=== PATIENT | male | born 1980 | race Caucasian/White ===

== ENCOUNTER 2024-02-25 13:54 | Inpatient (IN) | payer BC, SELFPAY ==
[2024-02-25] VITALS (8 sets, daily range): BP systolic 119–179; BP diastolic 79–100; BMI 30.1
--- NOTE | 2024-02-25 12:02 | ED.GENMED ---
History of Present Illness
General
Chief Complaint: Skin Problem
Time Seen by Provider: 02/25/24 11:48
History of Present Illness
History of Present Illness:
Patient is a 44-year-old man presenting to the emergency department middle finger infection. Patient states that about 3 weeks ago he cut his finger went to an urgent care and started on doxycycline. He states that it did not help with the redness
swelling or other drainage so he was switched over to Augmentin. He completed that course and went to orthopedics 2 days ago. During the visit the scab was removed. Patient states that since then he has had significant swelling redness and
purulent drainage. Last night he states that he used a needle to poke a hole in it and there was some blood and purulent drainage. No fevers or chills. No numbness tingling. No weakness. He does have full range of motion of his finger.
Past History
Past History
ED Past Medical History: None
Social History
Alcohol: Binge drinker
Personal: Single
Phy Exam
Physical Exam
Physical Exam:
GENERAL: in no acute distress
HEENT: normocephalic, extraocular movements intact
NECK: normal inspection
RESPIRATORY: no respiratory distress
CARDIOVASCULAR: regular rate and rhythm
EXTREMITIES: Left hand: Left distal middle finger with swelling to the palmar aspect and mild warmth and erythema. There is no obvious collection or induration, no fingernail involvement
NEUROLOGIC: awake and alert, moves all extremities
SKIN: warm
Course
Orders/Labs/Results
Orders:
Orders
02/25/24 12:00
CR Finger(s)/thumb Min 2 Vw Lt Urgent
Comment:
Reason For Exam: middle finger infection
02/25/24 12:18
Vancomycin [Vancocin] 2,000 mg 0.9% Sodium Chloride 500 ml [Nss] 500 ml IV NOW
02/25/24 12:20
Basic Metabolic Panel Urgent
Complete Blood Count/With Diff Urgent
Abnormal Lab Results
02/25/24
12:20
RBC 4.48 L 10^6/uL
(4.70-6.10)
Hct 38.6 L %
(39.0-52.0)
Absolute Neuts (auto) 7.4 H 10^3/uL
(1.4-6.5)
Absolute Monos (auto) 0.7 H 10^3/uL
(0.1-0.6)
Glucose 119 H mg/dl
(70-99)
02/25/24 12:20
02/25/24 12:20
Vital Signs
Initial and Last Documented VS:
Initial Vital Signs
Temp Pulse Resp BP Pulse Ox
98.5 F 91 18 179/100 98
02/25/24 10:28 02/25/24 10:28 02/25/24 10:02/25/24 10:28 02/25/24 10:28
Last Documented Vital Signs
Temp Pulse Resp BP Pulse Ox
98.5 F 80 16 179/100 99
02/25/24 10:28 02/25/24 12:25 02/25/24 12:25 02/25/24 10:02/25/24 12:25
MDM/Problems Addressed
Differential Diagnosis Includes:
44-year-old man presenting to the emergency department with concern for left middle finger infection that has been ongoing for 3 weeks. Vitals are unremarkable exam does show the distal phalanx of the left middle finger with erythema edema and
slight warmth. No obvious fluctuance. Concern for cellulitis versus osteomyelitis. History and exam not consistent with flexor tenosynovitis. No abscess seen on exam to drain. Given that patient has failed to oral antibiotic therapies will
initiate IV vancomycin. Will obtain basic blood work and x-ray of the finger to rule out any retained foreign bodies or signs of osteomyelitis.
*Critical Care Note
Total Time (30-74mins, 75-104mins- exclusive of procedures): Not Applicable
Update Note
Update Note:
X-ray per my interpretation with no foreign body or signs of cortical involvement to suggest osteomyelitis. Blood work generally unremarkable. Discussed with hospitalist who excepted patient for admission.
ED Attending Note
-
Portions of this chart may have been created with voice recognition software.� Occasional wrong word or��sound alike� substitutions may have occurred due to the inherent limitations of voice recognition software.
Discharge Plan
Departure
Patient Disposition: Admit
Date of Disposition: 02/25/24
Time of Disposition: 13:23
Presentation/result/management discussed w/ accepting MD/DO: Hospitalist
Discharge Problem:
Cellulitis
Prescriptions:
No Action
diphenhydramine HCl [Benadryl] 50 mg Capsule
50 mg PO HSPRN PRN (Reason: sleep)
ibuprofen [Advil] 200 mg Tablet
200 mg PO Q6HPRN PRN (Reason: headache)
escitalopram oxalate 10 mg Tablet
10 mg PO DAILY
melatonin 5 mg Tablet,Chewable
15 mg PO HSPRN PRN (Reason: sleep)
Referrals:
NONE,* [Family Provider] -
Interventions
Interventions:
*Risk Screen - Suicide Last Done: 02/25/24 12:25
*General Assessment Last Done: 02/25/24 12:25
*Neglect/Abuse Screening Last Done: 02/25/24 12:25
ED- Fall Risk Assessment Last Done: 02/25/24 12:25
*ED COVID-19 Vaccine History Last Done: 02/25/24 12:25
ED-Skin Assessment Last Done: 02/25/24 12:25
Discharge Date and Time
Print Language: BOTSWANAN
--- NOTE | 2024-02-25 12:08 | EDRN ---
Dr. Gomez was in to see pt.
[2024-02-25 12:30] LABS: % Basophils 0.5 % (0-2); % Eosinophils 0.2 % (0-6); % Immature Granulocytes 0.4 % (0-0.5); % Lymphocytes 21.7 % (20.5-51.1); % Monocytes 6.3 % (1.7-9.3); % Neutrophils 70.9 % (42.2-75.2); Absolute Basophils 0.1 10^3/uL (0-0.2); Absolute Lymphocytes 2.3 10^3/uL (1.2-3.4); Absolute Monocytes 0.7 10^3/uL (0.1-0.6); Absolute Neutrophils 7.4 10^3/uL (1.4-6.5); Hematocrit 38.6 % (39.0-52.0); Mean Corp Hgb Conc. 33.7 g/dL (33.0-37.0); Mean Corpuscular Volume 86.2 fL (80.0-94.0); Mean Platelet Volume 9.5 fL (7.4-10.4); Nucleated Red Blood Cells % 0 % (-); Platelet Count 296 10^3/uL (130-400); Red Blood Cell Count 4.48 10^6/uL (4.70-6.10); Red Cell Dist. Width 13.5 % (11.5-14.5); White Blood Cell Count 10.4 10^3/uL (4.8-10.8)
[2024-02-25 13:01] LABS: Blood Urea Nitrogen 13 mg/dl (9-20); Calcium 9.1 mg/dl (8.4-10.2); Carbon Dioxide 28 mmol/L (22-30); Chloride 101 mmol/L (98-107); Estimated Creatinine Clearance 90 ml/min; Glucose 119 mg/dl (70-99); Potassium 4.3 mmol/L (3.5-5.1); Sodium 138 mmol/L (135-145); eGFR > 60.00
--- NOTE | 2024-02-25 13:30 | HPS.HSE ---
Family Physician
-
Family Physician: * NONE
Chief Complaint
-
left middle finger wound
History of Present Illness
44-year-old man with PMH for depression presenting to the emergency department left middle finger infection. Patient states that about 3 weeks ago he nicked his finger on something while cleaning his yard. He went to an urgent care and started on
doxycycline which he took for 5 days. He states that it did not help with the redness swelling or other drainage so he was switched over to Augmentin which he took for 7 days, He completed that course and went to orthopedics 2 days ago. During
the visit the scab was removed. Patient states that since then he has had significant swelling redness and purulent drainage. Last night he states that he used a needle to poke a hole in it and there was some blood and purulent drainage. today
morning, he woke up with purulent drainage. No fevers or chills. No numbness tingling. No weakness. Patient denies headache, dizzy, syncope. Patient denied chest pain or short of breath. Patient denied abdominal pain, nausea, vomiting or
diarrhea. Patient denied dysuria hematuria.
Patient received vancomycin in ER. Admitted for further management
Medical History
Past Medical History
Past Medical History: Reports None
Additional Past Medical History:
Depression
Past Surgical History: Reports None
Social History
Tobacco: Smoker
Alcohol: None
Drug: None
Personal: Single
Living: Alone
Family History
Family History: Not pertinent
Allergies / Home Medications
Allergies reflects when Allergies were last updated in [facility].
Home Medications with original date entered in [facility]
Allergy/Medication List:
Allergies
Allergy/AdvReac Type Severity Reaction Status Date / Time
sulfamethoxazole Allergy Rash Verified 02/25/24 10:28
[From Bactrim]
trimethoprim [From Bactrim] Allergy Rash Verified 02/25/24 10:28
Home Medications
diphenhydramine HCl 50 mg capsule 50 mg PO HSPRN PRN sleep 02/25/24
escitalopram oxalate 10 mg tablet 10 mg PO DAILY 02/25/24
ibuprofen 200 mg tablet (Advil) 200 mg PO Q6HPRN PRN headache 02/25/24
melatonin 5 mg chewable tablet 15 mg PO HSPRN PRN sleep 02/25/24
Review of Systems
-
Constitutional: Reports No Symptoms
EENT: Reports No Symptoms
Respiratory: Reports No Symptoms
Cardiac: Reports No Symptoms
Abdomen/GI: Reports No Symptoms
: Reports No Symptoms
Musculoskeletal: Reports No Symptoms
Skin: Reports Other (left middle finger wound)
Neurological: Reports No Symptoms
Endocrine: Reports No Symptoms
Hematologic/Lymphatic: Reports No Symptoms
Psych: Reports No Symptoms
Physical Exam
Vital Signs
Vital Signs
Temp Pulse Resp BP Pulse Ox
98.5 F 80 16 179/100 99
02/25/24 10:28 02/25/24 12:25 02/25/24 12:25 02/25/24 10:28 02/25/24 12:25
Physical Exam
General: Well Developed, Well Nourished and No Apparent Distress
HEENT: NormoCephalic, Moist mucous membranes and Atraumatic
Respiratory: Clear
Cardiac: S1/S2 and Regular Rhythm; No Murmur or Rub
GI: Soft, Non Tender, Non Distended and Normal Bowel Sounds; No Organomegaly
Rectal: Deferred by Provider
Musculoskeletal: No Clubbing, No Cyanosis and No Edema
Skin: Rash and Other (left middle finger wound)
Neuro: AO x 3 and Nonfocal/grossly intact
Psych: Calm
Laboratory Results
-
02/25/24 12:20
02/25/24 12:20
Data Reviewed
-
Lab Data: Labs Reviewed by me
Impression/Plan
-
# Distal middle finger cellulitis
-Failed outpatient antibiotic therapy
-Vancomycin continued
-Patient is afebrile with normal WBC
-Finger x-ray pending
-Tylenol as needed for fever and pain
# Depression
-Citalopram continued
#DVT prophylaxis
-SCD
# CODE STATUS
-Full code
--- NOTE | 2024-02-25 13:35 | EDRN ---
Osbaldo Schroeder FLASH RANGING CREWMEMBER in room w/ pt at this time.
[2024-02-25] MEDS: VANCOCIN 540 MG IV (13:42)
--- NOTE | 2024-02-25 14:43 | EDRN ---
Dr. Aguilar in room w/pt at this time.
--- NOTE | 2024-02-25 15:20 | EDRN ---
Osbaldo Schroeder NP TT'd for a nicotine patch that pt had requested when this RN was in room w/ pt. She had offered it when she was in to see pt but he had declined but now has changed his mind.
[2024-02-25] MEDS: NICODERM TRANSDERMAL 14 MG TRANSDERM (15:42)
--- NOTE | 2024-02-25 16:03 | EDRN ---
Pt OOB to BR at this time.
--- NOTE | 2024-02-25 18:57 | PHA.VAN.IN ---
Assessment
- Assessment
Renal Function: Appears similar to baseline (Slightly elevated from 2018 (0.9). Will continue to monitor)
Maximum Temperature: 99.7
Minimum Temperature: 98.5
AUC Dosing Plan
- Dosing Variables
Dosing Weight (kg): 97.7
Dosing CrCl (ml/min): 90
Vd coefficient (L/kg): 0.6
- Empiric Dosing
Initial / Loading Dose: 2000mg on 02/24 @1342
Maintenance Regimen: 1000mg Q12H to start on 02/25
Estimated AUC (mcg*h/mL): 448
Estimated Peak (mcg*h/mL): 27.8
Estimated Trough (mcg/ml): 11.7
Estimated Half Life (H): 8.8
- Monitoring
No levels ordered at this time: Will consider levels in next coming few days
Pharmacokinetics Vancomycin I
- -
Patient Age: 44
Patient Sex: Male
Vancomycin Day #: 1
Indication: Skin And Soft Tissue
Requesting Provider: John Gonzales
Pertinent Antimicrobial Allergies:
Sulfamethoxazole/trimethoprim
Height / Weight:
Height 5 ft 11 in
Actual Weight 97.721 kg
- Vital Signs / Lab Results
Temp Pulse Resp BP Pulse Ox
99.7 F 67 20 126/89 98
02/25/24 17:03 02/25/24 17:03 02/25/24 17:03 02/25/24 17:03 02/25/24 17:03
Lab Results - Hematology
02/25/24
12:20
WBC 10.4
Lab Results - Chemistry
02/25/24
12:20
BUN 13
Creatinine 1.1
Estimated Creat Clear 90
--- NOTE | 2024-02-25 20:46 | W.PN.UPDATE ---
Update Note
Progress Note Update
Attending addendum
Patient seen independently
44-year-old man with PMH for depression presents with left middle finger infection. 3 weeks ago he nicked his finger on something while cleaning his yard. He took doxycycline for 5 days. this did not help with the redness swelling or other drainage
so he was switched over to Augmentin which he took for 7 days, He went to orthopedics 2 days ago and the scab was removed. Since then he has had significant swelling redness and purulent drainage. No fevers or chills. No numbness tingling. No
weakness. Patient denies headache, dizzy, syncope. Patient denied chest pain or short of breath. Patient denied abdominal pain, nausea, vomiting or diarrhea. Patient denied dysuria hematuria.
Past Medical History
Depression
Physical Exam
General: Well Developed, Well Nourished and No Apparent Distress
HEENT: NormoCephalic, Moist mucous membranes and Atraumatic
Respiratory: Clear
Cardiac: S1/S2 and Regular Rhythm; No Murmur or Rub
GI: Soft, Non Tender, Non Distended and Normal Bowel Sounds; No Organomegaly
Skin: Rash and Other (left middle finger wound)
Psych: Calm
Impression/Plan
1. Distal middle finger cellulitis with purulent drainage
-Failed outpatient antibiotic therapy
-Vancomycin continued
- if needed consider coverage for nocardia
See [employer]AM[employer]ER note for details on
# Depression
DVT prophylaxis -SCD
CODE STATUS -Full code
[2024-02-25] MEDS: BENADRYL 50 MG PO (23:22)
[2024-02-26] MEDS: VANCOCIN 200 IV (05:08)
--- NOTE | 2024-02-26 07:02 | W.PN.HOSP.TC ---
Today's Communication/Plan
-
discharge
Assessment / Plan
Assessment / Plan
Physical Exam
General: No acute distress appears comfortable at this time
HEENT: NormoCephalic, Moist mucous membranes and Atraumatic
Respiratory: Clear
Cardiac: S1/S2 and Regular Rhythm; No Murmur or Rub
GI: Soft, Non Tender, Non Distended and Normal Bowel Sounds; No Organomegaly
Musculoskeletal: No Clubbing, No Cyanosis and No Edema
Skin: left middle finger wound erythema as pictured below.
Neuro: AO x 3 Nonfocal/grossly intact
Psych: Calm
Left middle finger wound
44M hx depression here with left middle finger wound as pictures above, failed outpt abx treatment.
#Left Distal middle finger cellulitis
-Failed outpatient antibiotic therapy
-received empiric Vancomycin
-Patient is afebrile with normal WBC
-Left middle Finger x-ray appreciated no acute abn's
-Tylenol as needed for fever and pain
-recently saw outpt orthopedic hand specialist
ID delgadoal appreciated Keflex 500 mg QID 7 days
-if recurrence purulent drainage follow up with primary care provider, orthopedic hand specialist, or ED for prompt acquisition appropriate cultures, to guide any necessity of further antibiotics, and possible benefit Hand MRI to ensure no retained
body that may be radiolucent on plain film
Patient reports feeling well, eager to go home.
# Depression
-Citalopram continued
#DVT prophylaxis
-SCD
# CODE STATUS
-Full code
Medically stable for discharge home with outpatient follow up recommendations.
Total Time Preparing Discharge ___40____ minutes including examination of the patient, summary of the hospital stay, instructions for continuing care to all relevant caregivers; and preparation of discharge records, prescriptions, and referral
forms if necessary.
Anticipated Discharge: Today
Subjective/Interval History
-
Date of Service: February 26, 2024
No acute distress. Sitting up comfortably in chair. Reports overall feeling well. Denies new acute issues. Eager to go home.
Objective Data
-
Vital Signs:
Vital Signs
Temp Pulse Resp BP Pulse Ox
97.9 F 66 18 130/84 97
02/25/24 23:37 02/25/24 23:37 02/25/24 23:37 02/25/24 23:37 02/25/24 23:37
I&O
02/25/24 02/26/24 02/27/24
06:59 06:59 06:59
Intake Total 730 / 730
Balance 730 / 730
[2024-02-26 07:05] VITALS: BP 121/62
[2024-02-26] MEDS: LEXAPRO 10 MG PO (08:48)
[2024-02-26] MEDS: NICODERM TRANSDERMAL 14 MG TRANSDERM (08:48)
--- NOTE | 2024-02-26 09:52 | CON.ID ---
Consultation
-
Date/Time Consultation Requested: 12/26/2024 0805
Date/Time Consultation Performed: 02/26/2024 0935
Requesting Provider: Dr. Streeter
Performing Provider: Dr. Arriaga
Reason for Consultation: Left middle finger cellulitis
Chief Complaint / Past History
History of Present Illness
Case Lawler is a 44-year-old male being evaluated at the request of Dr. Streeter in regards to left middle finger cellulitis. History is obtained from chart review, along with patient interview.
The patient reports that approximately 3-1/2 weeks ago he was cleaning his balcony and got a splinter lodged in the pad of the distal phalanges of his third left finger. He believes that he got all of the splinter out, but he is not exactly sure.
He thereafter noted some redness and swelling of the area and initially was seen at an urgent care and was started on doxycycline for 5 days. He notes that he still had some redness and swelling of the area and then was switched to Augmentin which
she took for an additional 7 days. He notes that he followed with Orthopedics approximately 3 days ago at which time a scab on the finger was removed. He subsequently had increased swelling and redness and reported a small amount of purulent
drainage. He also notes that he took needle to the distal portion and poked a hole, with recovery of reported blood and some purulence. Yesterday he notes that he woke up with some purulent drainage from the site where he poked it with a needle
and came to the emergency room for further evaluation. In the ER he was started on empiric vancomycin. Infectious Diseases is asked to comment upon further antimicrobial therapy.
At this time he denies any pain, but only notes some redness and some swelling. He notes no extension of erythema onto his hand or up his forearm. He denies any axillary adenopathy.
Past History
Past Medical History: None
Additional Past Surgical History:
Left elbow bursitis
Right knee ACL repair
Allergy History:
sulfamethoxazole [From Bactrim] Allergy (Verified 02/25/24 10:28)
Rash
Medications Reviewed: Yes
Current Antibiotics:
Vancomycin
Social History
Tobacco: Smoker
Alcohol: None
Drug: None
Employment: Employed
Family History
Family History: Not Pertinent
Review of Systems
Vital Signs
Temp Pulse Resp BP Pulse Ox
97.5 F 58 16 121/62 98
02/26/24 07:05 02/26/24 07:05 02/26/24 07:05 02/26/24 07:05 02/26/24 07:05
Physical Exam
Physical Exam
Constitutional: No Acute Distress, Well Developed, Comfortable and Non-toxic
Eyes: Pupils Equal, Pupils Round, No Conjunctival Hemorrhage and Sclera Anicteric
Oral: No Thrush and No Ulcers
Cardiovascular: S1/S2; Negative S3/S4
Pulmonary: Non Labored
Gastrointestinal: Soft, Non Tender and Non Distended
Extremities: Other (left middle finger with mild erythema on pad. No significant warmth. Mild swelling but not tense. No fluctuant areas. No expressible purulence.)
Neurological: Awake and Alert
Psychological: Calm
Lab / Diagnostic Study Results
02/25/24 12:20
02/25/24 12:20
Abs Immat Gran (auto) 0.0 10^3/uL (0-0.05) 02/25/24 12:20
Absolute Neuts (auto) 7.4 10^3/uL (1.4-6.5) H 02/25/24 12:20
Absolute Lymphs (auto) 2.3 10^3/uL (1.2-3.4) 02/25/24 12:20
Absolute Monos (auto) 0.7 10^3/uL (0.1-0.6) H 02/25/24 12:20
Absolute Basos (auto) 0.1 10^3/uL (0-0.2) 02/25/24 12:20
Immature Gran % 0.4 % (0-0.5) 02/25/24 12:20
Neutrophils % 70.9 % (42.2-75.2) 02/25/24 12:20
Lymphocytes % 21.7 % (20.5-51.1) 02/25/24 12:20
Monocytes % 6.3 % (1.7-9.3) 02/25/24 12:20
Eosinophils % 0.2 % (0-6) 02/25/24 12:20
Basophils % 0.5 % (0-2) 02/25/24 12:20
Microbiology Results
Imaging:
02/25/2024 X-ray left hand: No fracture or dislocation. Regional osseous system is normal in architecture. Although not specifically noted, personal review does not reveal any foreign body in the pad of the third finger.
Assessment / Plan
Left third finger infection following splinter
Finger swelling.
Finger erythema
Recommendations:
At present, erythema is mild to moderate, and the pad of the finger is not significantly tender nor tense with edema. Despite palpation, no purulence could be expressed in the area.
Would recommend transition to Keflex 500 mg p.o. 4 times daily for an additional 7 days.
Would follow for the development of any recurrence of purulent drainage, which should prompt acquisition of appropriate cultures to guide any necessity of further antibiotics.
Additionally, should there be recurrence of drainage, patient may require MRI to ensure no retained body that may be radiolucent on plain film.
--- NOTE | 2024-02-26 11:25 | CM ---
Patient seen bedside, initial assessment completed. Patient reports he would like to discharge home, CM reports discharge order is not in at this time. Patient confirms he lives independently in a three story home, 20 steps to enter. Patient is
independent with ADLs, denies VN or SNF history. Patient does not have a PCP, list provided to patient. Pharmacy confirmed [facility]. CM will continue to follow for all discharge planning needs.
Plan; home no needs likely.
[2024-02-26] MEDS: KEFLEX 500 MG PO (12:18)
--- NOTE | 2024-02-26 12:43 | W.DCSUMMARY ---
Discharge Summary
Discharge Data
Date of Admission: 02/25/24
Date of Discharge: 02/26/24
-
Pending Results: No
Discharge Plan
-
Patient Disposition: Home (Routine Discharge)
Discharge Diagnosis/Procedures: Left Distal Middle Finger Cellulitis
Condition: Good
Diet: Regular
Activity: As tolerated
Driving Restrictions: As prior to admission
Bathing Restrictions: None
Activity Restrictions/Additional Instructions:
Please follow up with primary care provider and orthopedic hand specialist in 1 week of discharge.
Keflex 500 mg four times a day for 7 days has been prescribed for treatment of Left middle finger cellulitis
Please take medications as prescribed/recommended and follow up with primary care provider and/or other healthcare provider involved in your care for further adjustment to your medication regimen as necessary.
If recurrence purulent drainage, follow up with primary care provider, orthopedic hand specialist, or ED for prompt acquisition appropriate cultures (to guide any necessity of further antibiotics) and for possible benefit Hand MRI to ensure no
retained body that may be radiolucent on plain film.
Referrals:
NONE,* [Family Provider] -
Prescriptions:
New
cephalexin 500 mg Capsule
500 mg PO QID 7 Days Qty: 28 0RF
Continued
diphenhydramine HCl 50 mg Capsule
50 mg PO HSPRN PRN (Reason: sleep)
ibuprofen [Advil] 200 mg Tablet
200 mg PO Q6HPRN PRN (Reason: headache)
escitalopram oxalate 10 mg Tablet
10 mg PO DAILY
melatonin 5 mg Tablet,Chewable
15 mg PO HSPRN PRN (Reason: sleep)
Discharge Orders:
Discharge Patient (As Directed); Ordered 02/26/24
Ordered By: Robert Streeter
Discharge Date and Time
Print Language: [id number]
[2024-02-26 12:55] VITALS: BP 160/95
== END 2024-02-26 13:09 | disposition home or self-care (01) | DRG 603 ==
LOC: 4 WEST ACU 13:54
PROVIDERS: ADMITTING PHYSICIAN Internal Medicine; ATTENDING PHYSICIAN Internal Medicine; CONSULT PHYSICIAN Internal Medicine Infectious Disease; EMERGENCY PHYSICIAN Student in an Organized Health Care Education/Training Program
DX: L03.012 Cellulitis of left finger (principal); S61.213A Laceration without foreign body of left middle finger without damage to nail, initial encounter; W45.8XXA Other foreign body or object entering through skin, initial encounter; Y93.H2 Activity, gardening and landscaping; Y92.007 Garden or yard of unspecified non-institutional (private) residence as the place of occurrence of the external cause; F32.A Depression, unspecified; F17.200 Nicotine dependence, unspecified, uncomplicated; Z88.1 Allergy status to other antibiotic agents; Z88.2 Allergy status to sulfonamides
CPT/HCPCS: 73140; 80048; 85025; 96365; 96366; 99284; 99406